=== PATIENT | female | born 1990 | race Caucasian/White ===

== ENCOUNTER 2016-12-20 21:39 | Emergency (ER) | payer SELFPAY ==
[2016-12-20 21:39] VITALS: BMI 32.0
[2016-12-20 21:52] VITALS: O2SAT 99
--- NOTE | 2016-12-20 22:26 | C.PDOC ---
History Of Present Illness 26 year old female presents to the ED with complaints of right sided pain, non- radiating, exacerbating breathing and movement x 2 days. Patient denies cough, fever, chills, nausea, vomiting, or diarrhea. not on ocp. She denies any recent surgery, prolonged immobilization, heavy lifting or prior injury. Time Seen by Provider: 12/20/16 22:12 Chief Complaint (Nursing): Rib Injury History Per: Patient History/Exam Limitations: no limitations Onset/Duration Of Symptoms: Days (2) Current Symptoms Are (Timing): Still Present Past Medical History Reviewed: Historical Data, Nursing Documentation, Vital Signs Vital Signs: Last Vital Signs Temp 98.7 F 12/21/16 00:35 Pulse 88 12/21/16 00:35 Resp 18 12/21/16 00:35 BP 118/80 12/21/16 00:35 Pulse Ox 99 12/21/16 06:55 - [facility] Procedures EPISIOTOMY (05/14/14) MONITORING NOS (05/14/14) MEDICAL INDUCTION LABOR (05/14/14) Family History: States: Unknown Family Hx - Social History Hx Alcohol Use: No Hx Substance Use: No - Immunization History Hx Tetanus Toxoid Vaccination: No Hx Influenza Vaccination: No Hx Pneumococcal Vaccination: No Physical Exam - Physical Exam Additional Physical Exam Comments: Constitutional: No acute distress. WDWN. Head: Normocephalic. Atraumatic. Eyes: PERRL. EOMI. ENT: Moist mucous membranes. Neck: Supple. Cardiovascular: Regular rate and rhythm. no murmur. Chest: No tenderness.no rib tenderness Respiratory: Clear to auscultation bilaterally. GI: Soft. +bs, tender to right flank and right upper quadrant, neg murphys sign , no swelling, erythema, or warmth noted. Back: No CVA and no mid-line tenderness. Musculoskeletal: No tenderness or swelling of extremities. Skin: No rash. Neurologic: Alert, no focal deficit. ED Course And Treatment - Laboratory Results Result Diagrams: 12/20/16 22:42 12/20/16 22:42 O2 Sat by Pulse Oximetry: 99 (room air ) Medical Decision Making Medical Decision Making: unremarkable abdominal us. will give toradol and d/c home with musculskeletal pain. 1257 pt feeling better after toradol, mild residual pain; will d/c home wiht pmd f/u today. Disposition Counseled Patient/Family Regarding: Diagnosis, Need For Followup, Rx Given - Disposition Referrals: Tonia Juan MD [Non-Staff] - Disposition: HOME/ ROUTINE Disposition Time: 00:58 Condition: STABLE Additional Instructions: Ibuprofen for pain. Follow up with pmd today. Avoid heavy lifting. Return to ER for any worse symptoms. Prescriptions: Ibuprofen [Motrin] 600 mg PO TID #30 tab Instructions: Musculoskeletal Pain (ED) Forms: General Discharge Instructions, Work/School/Gym Excuse - Clinical Impression Clinical Impression: Abdominal muscle strain - Scribe Statement The provider has reviewed the documentation as recorded by the Scribe Renee Kellogg All medical record entries made by the Scribe were at my direction and personally dictated by me. I have reviewed the chart and agree that the record accurately reflects my personal performance of the history, physical exam, medical decision making, and the department course for this patient. I have also personally directed, reviewed, and agree with the discharge instructions and disposition.
[2016-12-20 22:45] LABS: BASO # 0.1 K/uL (0.0-0.2); BASO % 0.7 % (0.0-2.0); EOS # 0.2 K/uL (0.0-0.7); HEMATOCRIT 39.3 % (34.0-47.0); LYMPH # 1.9 K/uL (1.0-4.3); LYMPH % 21.1 % (20.0-40.0); MEAN CELL VOLUME 74.1 fL (81.0-99.0); MEAN CORPUSCULAR HEMOGLOBIN 23.9 pg (27.0-31.0); MEAN CORPUSCULAR HGB CONC 32.3 g/dL (33.0-37.0); MEAN PLATELET VOLUME 8.8 fL (7.2-11.7); MONO # 0.9 K/uL (0.0-0.8); MONO % 9.7 % (0.0-10.0); RED CELL DISTRIBUTION WIDTH 14.4 % (11.5-14.5); WHITE BLOOD COUNT 9.1 K/uL (4.8-10.8)
[2016-12-20 22:55] LABS: CHLORIDE 101 mmol/L (98-107); POTASSIUM 3.5 mmol/L (3.6-5.2); SODIUM 141 mmol/L (132-148)
[2016-12-20 22:57] LABS: BILIRUBIN,TOTAL 0.5 mg/dL (0.2-1.3); GFR AFRICAN-AMERICAN > 60
[2016-12-20 22:58] LABS: ALB/GLOB RATIO 1.1 (1.0-2.1); ALKALINE PHOSPHATASE 81 U/L (38-126); ALT/SGPT 25 U/L (9-52); AST/SGOT 33 U/L (14-36); BLOOD UREA NITROGEN 9 mg/dL (7-17); CALCIUM 9.5 mg/dl (8.6-10.4); CARBON DIOXIDE 27 mmol/L (22-30); GLUCOSE,RANDOM 87 mg/dL (65-105); TOTAL PROTEIN 7.9 g/dL (6.3-8.3)
[2016-12-21 00:36] VITALS: BP 118/80; PULSE 88; RESP 18; TEMP 98.7
--- NOTE | 2016-12-21 08:36 | US ---
HISTORY: Right upper quadrant pain COMPARISON: None. TECHNIQUE: Grayscale imaging was performed. FINDINGS: LIVER: Measures 13.3 cm in length. Normal echogenicity of the liver parenchyma. No mass. No intrahepatic bile duct dilatation. GALLBLADDER: Unremarkable. No gallstones. COMMON BILE DUCT: Measures 3.4 mm. No stones. No dilatation. PANCREAS: Unremarkable as visualized. No mass. No ductal dilatation. RIGHT KIDNEY: Measures 10.8 cm in length. Normal echogenicity. No calculus, mass, or hydronephrosis. AORTA: No aneurysmal dilatation. IVC: Unremarkable. OTHER FINDINGS: None . IMPRESSION: Diffuse increased echogenicity in the liver may reflect hepatic steatosis however parenchymal infectious/ inflammatory etiologies cannot be entirely excluded. Clinical and laboratory correlation is advised. No evidence of cholelithiasis or biliary dilatation.
== END 2016-12-21 01:10 | disposition home or self-care (01) ==
LOC: C.ER 21:39
DX: S39.011A Strain of muscle, fascia and tendon of abdomen, initial encounter (principal); X58.XXXA Exposure to other specified factors, initial encounter; Y93.89 Activity, other specified; Y92.89 Other specified places as the place of occurrence of the external cause
CPT/HCPCS: 76705; 80053; 83690; 85025; 96374; 99284; J1885